=== PATIENT | male | born 1950 ===

== ENCOUNTER 2023-06-21 05:48 | Day surgery (SDC) | payer OTHER ==
[2023-06-19 09:32] LABS: HEMATOCRIT 38.9 % (39.0-48.0); HEMOGLOBIN 12.3 g/dL (13-16.00); MEAN CELL VOLUME 73.4 fL (80.0-100.00); MEAN CORPUSCULAR HEMOGLOBIN 23.2 pg (27.00-32.0); MEAN CORPUSCULAR HGB CONC 31.6 g/dl (32.0-36.0); PLATELET COUNT 250 K/uL (150-450); RED CELL DISTRIBUTION WIDTH 15.1 % (11.5-14.5)
[2023-06-19 09:37] LABS: PH,URINE 6.5 (5.0-8.0); URINE APPEARANCE Clear; URINE BILIRRUBIN Negative (NEGATIVE); URINE BLOOD Moderate; URINE COLOR Yellow; URINE LEUKOCYTE Negative; URINE NITRATE Negative; URINE PROTEIN Negative (NEGATIVE)
[2023-06-19 09:41] LABS: URINE BACTERIA 17.6 uL (0.0-1933); URINE EPITHELIAL CELLS 4.6 uL (0.0-38.8); URINE WBC 169.8 uL (0.0-23.2)
[2023-06-19 09:43] LABS: CALCIUM 9.5 mg/dL (8.5-10.1); CREATININE SERUM 0.58 mg/dL (0.70-1.30); GFR 138.11; POTASSIUM 4.52 mEq/L (3.5-5.1)
[2023-06-19 09:49] LABS: INR 1.03; PARTIAL THROMBOPLASTIN TIME 27.8 SECONDS (22.0-34.0); PROTHROMBIN TIME 10.8 SECONDS (9.0-11.5)
[2023-06-19 09:51] LABS: URINE GLUCOSE >=1000 MG/DL (NEGATIVE)
[~2023-06-21 05:48] MED LIST: ADULT LOW DOSE81 M1 PO; PROPECIA1 MG PO; SIMVAST PO; TAMS0.4C PO; [UNRECOGNIZED DRUG - CODE] PO
== END 2023-06-21 15:30 | disposition home or self-care (01) ==
LOC: CIR.AMB 05:48
PROVIDERS: ATTEND Urology
DX: N40.1 Benign prostatic hyperplasia with lower urinary tract symptoms (principal); R33.9 Retention of urine, unspecified; I10 Essential (primary) hypertension; Z20.822 Contact with and (suspected) exposure to COVID-19; E78.5 Hyperlipidemia, unspecified; E11.9 Type 2 diabetes mellitus without complications